=== PATIENT | female | born 1975 | race African-American/Black ===

== ENCOUNTER 2016-11-06 02:59 | Inpatient (IN) | payer OTHER ==
[~2016-11-06] VITALS: Ht 162.6 cm; Wt 87.1 kg
[2016-11-06] VITALS (39 sets, daily range): BP systolic 99–171; BP diastolic 40–131
[2016-11-06] MEDS ORDERED: IPRATROPIUM BROMIDE (0.02%) 0.5MG/2.5ML NEB HHN STA (03:09)
[2016-11-06] MEDS ORDERED: ALBUTEROL (0.083%) 2.5MG/3ML NEB HHN STA (03:09)
[2016-11-06] MEDS ORDERED: ONDANSETRON HCL 4MG/2ML VIAL IV STA (03:09)
[2016-11-06] MEDS ORDERED: SODIUM CHLORIDE 0.9% 1,000 ML IV ONE (03:09)
[2016-11-06] MEDS ORDERED: METHYLPREDNISOLONE SOD SUCC 125 MG/2 ML VIAL IV STA (03:09)
[2016-11-06] MEDS ORDERED: ETOMIDATE 2MG/ML 10ML VIAL IV ONE ×2 (03:15→04:00)
[2016-11-06] MEDS ORDERED: PROPOFOL 10MG/ML 100ML 100 ML IV ONE ×2 (03:15→05:03)
[2016-11-06] MEDS ORDERED: SUCCINYLCHOLINE CHLORIDE 200MG/10ML VIAL IV ONE ×2 (03:15→04:00)
[2016-11-06 04:03] LABS: BASOPHILS % 0.5 % (0.0-2.0); EOSINOPHILS % 6.7 % (0.0-5.0); HEMATOCRIT. 39.4 % (36.0-48.0); HEMOGLOBIN. 12.7 g/dL (12.0-16.0); LYMPHOCYTES % 45.4 % (20.0-50.0); MEAN CORPUSCULAR HEMOGLOBIN 27.2 pg (28.0-32.0); MEAN CORPUSCULAR VOLUME 84.9 fL (81.0-99.0); MEAN PLATELET VOLUME 8.2 fl (7.4-10.4); MONOCYTES % 9.5 % (2.0-8.0); NEUTROPHILS % 37.9 % (40.0-76.0); PLATELET 395 x1000/uL (130-400); RED BLOOD CELL COUNT 4.65 mill/uL (4.2-5.4); RED CELL DISTRIBUTION WIDTH 13.3 % (11.6-14.6)
[2016-11-06 04:32] LABS: CARBON DIOXIDE 27 mEq/L (21-32); CHLORIDE 102 mEq/L (98-107)
[2016-11-06 05:12] LABS: CLARITY URINE TURBID (CLEAR); COLOR URINE YELLOW (YELLOW); GLUCOSE URINE 1+ (NEGATIVE); KETONES URINE NEGATIVE (NEGATIVE); LEUKOCYTE ESTERASE URINE NEGATIVE (NEGATIVE); NITRITE URINE NEGATIVE (NEGATIVE); OCCULT BLOOD URINE 2+ (NEGATIVE); PROTEIN URINE 4+ (NEGATIVE); SPECIFIC GRAVITY URINE 1.024 (1.005-1.030); UROBILINOGEN URINE 0.2 E.U./dL (0.2-1.0)
[2016-11-06 05:19] LABS: BG BASE EXCESS -3.5 mmol/L (-2.0-2.0); BG CARBOXYHEMOGLOBIN 0.3 % (0.5-1.5); BG DEOXYHEMOGLOBIN 0.4 % (0.0-5.0); BG FRACTION INSPIRED OXYGEN 50; BG HCO3 ACT 22.9 mmol/L (22.0-26.0); BG METHEMOGLOBIN 0.4 % (0.0-1.5); BG OXYGEN SATURATION 99.6 % (92.0-98.5); BG OXYHEMOGLOBIN 98.9 % (94.0-97.0); BG PCO2 46.4 mmHg (35.0-45.0); BG PH 7.311 (7.350-7.450); BG PO2 235.1 mmHg (75.0-100.0); BG SAMPLE SITE RIGHT RADIAL; BG TIDAL VOLUME(mL) 500 mL; BG TOTAL HEMOGLOBIN 12.7 g/dL (12.0-18.0); BG VENT MODE VENT - A/C; BG VENT RATE 16 set
[2016-11-06] MEDS ORDERED: OLME1TAB30 PO (05:25)
[2016-11-06] MEDS ORDERED: MONT10TA24 PO (05:25)
[2016-11-06] MEDS ORDERED: DIAZ5TAB4 PO (05:26)
[2016-11-06] MEDS ORDERED: ALBU6.7H INH (05:28)
[2016-11-06] MEDS ORDERED: METHYLPREDNISOLONE SOD SUCC 40 MG/ML VIAL IV SCH (07:00)
[2016-11-06] MEDS: PROPOFOL 10MG/ML 100ML 100 ML IV PRN ×4 (07:33→18:55)
[2016-11-06 08:15] LABS: HEMATOCRIT. 36.8 % (36.0-48.0); HEMOGLOBIN. 11.7 g/dL (12.0-16.0); MEAN CORPUSCULAR HEMOGLOBIN 26.7 pg (28.0-32.0); MEAN PLATELET VOLUME 8.1 fl (7.4-10.4); RED BLOOD CELL COUNT 4.38 mill/uL (4.2-5.4); RED CELL DISTRIBUTION WIDTH 13.5 % (11.6-14.6)
[2016-11-06 08:19] LABS: *AMPHETAMINES SCREEN URINE NEGATIVE (NEGATIVE); *BARBITURATES SCREEN URINE NEGATIVE (NEGATIVE); *BENZODIAZEPINES SCREEN URINE NEGATIVE (NEGATIVE); *COCAINE SCREEN URINE NEGATIVE (NEGATIVE); CANNABINOID URINE SCREEN NEGATIVE (NEGATIVE); METHADONE URINE SCREEN NEGATIVE (NEGATIVE); OPIATES URINE SCREEN NEGATIVE (NEGATIVE); PHENCYCLIDINE URINE SCREEN NEGATIVE (NEGATIVE)
[2016-11-06] MEDS: IPRATROPIUM/ALBUTEROL 0.5-3(2.5)MG/3ML NEB HHN SCH ×3 (08:23→20:45)
[2016-11-06] MEDS ORDERED: IPRATROPIUM/ALBUTEROL 0.5-3(2.5)MG/3ML NEB ONE (08:28)
[2016-11-06 08:30] LABS: CARBON DIOXIDE 25 mEq/L (21-32); CHLORIDE 105 mEq/L (98-107)
[2016-11-06] MEDS ORDERED: MORPHINE SULFATE 2 MG/ML CPJ (NOT FOR IM USE) IV NR (08:38)
[2016-11-06] MEDS ORDERED: ENOXAPARIN 40MG/0.4ML SYR SUBCUT ONE (08:45)
[2016-11-06] MEDS ORDERED: CLONIDINE 0.1MG TABLET PO PRN (08:45)
[2016-11-06] MEDS ORDERED: ONDANSETRON HCL 4MG/2ML VIAL IV PRN (08:45)
[2016-11-06] MEDS ORDERED: DEXTROSE 50% WATER 50ML SYRINGE IV PRN (08:45)
[2016-11-06] MEDS: DEXT 5%/0.45% NACL KCL 20MEQ/L 1,000 ML IV SCH ×2 (08:56→18:42)
[2016-11-06] MEDS ORDERED: DIAZEPAM 2 MG TABLET NG PRN (09:00)
[2016-11-06] MEDS ORDERED: LIDOCAINE HCL/PF 1% 2ML VIAL ONE (09:01)
[2016-11-06] MEDS: CEFTRIAXONE 1 G PREMIX 50 ML IV SCH (09:28)
[2016-11-06] MEDS: ENOXAPARIN 40MG/0.4ML SYR SUBCUT SCH (09:30)
[2016-11-06 09:45] LABS: BG BASE EXCESS -2.4 mmol/L (-2.0-2.0); BG CARBOXYHEMOGLOBIN 0.5 % (0.5-1.5); BG DEOXYHEMOGLOBIN 0.4 % (0.0-5.0); BG FRACTION INSPIRED OXYGEN 50; BG HCO3 ACT 23.8 mmol/L (22.0-26.0); BG METHEMOGLOBIN 0.2 % (0.0-1.5); BG OXYGEN SATURATION 99.6 % (92.0-98.5); BG OXYHEMOGLOBIN 98.9 % (94.0-97.0); BG PCO2 46.8 mmHg (35.0-45.0); BG PH 7.325 (7.350-7.450); BG PO2 240.4 mmHg (75.0-100.0); BG PRESSURE SUPPORT 10; BG SAMPLE SITE RIGHT RADIAL; BG TIDAL VOLUME(mL) 500 mL; BG TOTAL HEMOGLOBIN 13.1 g/dL (12.0-18.0); BG VENT MODE VENT - SIMV; BG VENT RATE 6 set
[2016-11-06 09:56] LABS: PLATELET ESTIMATE NORMAL
[2016-11-06 09:57] LABS: PLATELET 364 x1000/uL (130-400)
[2016-11-06] MEDS: AZITHROMYCIN 500 MG in DEXT 5% WATER 250 ML IV SCH (10:35)
[2016-11-06] MEDS: FENTANYL CITRATE/PF 500 MCG in SODIUM CHLORIDE 0.9% 40 ML IV PRN (10:35)
[2016-11-06] MEDS: BLOOD SUGAR DIAGNOSTIC STRIP TEST SCH ×3 (12:08→23:08)
[2016-11-06] MEDS: INSULIN LISPRO 100 UNITS/ML SUBCUT SCH ×3 (12:10→23:09)
[2016-11-06] MEDS: BUDESONIDE 0.5MG/2ML NEB HHN SCH ×2 (13:27→20:46)
[2016-11-06] MEDS: METHYLPREDNISOLONE SOD SUCC 125 MG/2 ML VIAL IV SCH ×2 (14:41→21:09)
[2016-11-06] MEDS: MORPHINE SULFATE 2 MG/ML CPJ (NOT FOR IM USE) IV PRN ×2 (17:51→20:17)
[2016-11-06] MEDS: MONTELUKAST SODIUM 10MG TABLET PO SCH (18:02)
[2016-11-06] MEDS: DIAZEPAM 2 MG TABLET NG SCH (21:11)
[2016-11-07] VITALS (42 sets, daily range): BP systolic 106–163; BP diastolic 49–100
[2016-11-07] MEDS: FENTANYL CITRATE/PF 500 MCG in SODIUM CHLORIDE 0.9% 40 ML IV PRN (01:17)
[2016-11-07] MEDS: PROPOFOL 10MG/ML 100ML 100 ML IV PRN ×2 (02:24→06:06)
[2016-11-07] MEDS: DEXT 5%/0.45% NACL KCL 20MEQ/L 1,000 ML IV SCH ×2 (04:01→18:11)
[2016-11-07] MEDS ORDERED: LIDOCAINE HCL/PF 1% 2ML VIAL ONE ×2 (05:00→10:15)
[2016-11-07 05:23] LABS: HEMATOCRIT. 32.5 % (36.0-48.0); HEMOGLOBIN. 10.4 g/dL (12.0-16.0); MEAN CORPUSCULAR HEMOGLOBIN 26.7 pg (28.0-32.0); MEAN CORPUSCULAR VOLUME 83.2 fL (81.0-99.0); MEAN PLATELET VOLUME 8.1 fl (7.4-10.4); PLATELET 382 x1000/uL (130-400); RED BLOOD CELL COUNT 3.91 mill/uL (4.2-5.4); RED CELL DISTRIBUTION WIDTH 13.7 % (11.6-14.6)
[2016-11-07] MEDS: METHYLPREDNISOLONE SOD SUCC 125 MG/2 ML VIAL IV SCH (05:39)
[2016-11-07] MEDS: BLOOD SUGAR DIAGNOSTIC STRIP TEST SCH ×3 (05:43→18:10)
[2016-11-07] MEDS: INSULIN LISPRO 100 UNITS/ML SUBCUT SCH ×3 (05:47→17:53)
[2016-11-07 05:53] LABS: CARBON DIOXIDE 21 mEq/L (21-32); CHLORIDE 106 mEq/L (98-107); TROPONIN I < 0.02 ng/mL (0.00-0.04)
[2016-11-07 07:58] LABS: BG BASE EXCESS -3.2 mmol/L (-2.0-2.0); BG CARBOXYHEMOGLOBIN 0.5 % (0.5-1.5); BG DEOXYHEMOGLOBIN 0.7 % (0.0-5.0); BG FRACTION INSPIRED OXYGEN 35; BG HCO3 ACT 19.1 mmol/L (22.0-26.0); BG METHEMOGLOBIN 0.3 % (0.0-1.5); BG OXYGEN SATURATION 99.3 % (92.0-98.5); BG OXYHEMOGLOBIN 98.5 % (94.0-97.0); BG PH 7.468 (7.350-7.450); BG PO2 154.7 mmHg (75.0-100.0); BG SAMPLE SITE RIGHT RADIAL; BG TIDAL VOLUME(mL) 550 mL; BG TOTAL HEMOGLOBIN 12.7 g/dL (12.0-18.0); BG VENT MODE VENT - A/C; BG VENT RATE 16 set
[2016-11-07] MEDS: BUDESONIDE 0.5MG/2ML NEB HHN SCH ×2 (08:00→21:14)
[2016-11-07] MEDS: IPRATROPIUM/ALBUTEROL 0.5-3(2.5)MG/3ML NEB HHN SCH ×4 (08:00→21:14)
[2016-11-07] MEDS ORDERED: AMLODIPINE 2.5MG TABLET PO NR (09:45)
[2016-11-07 10:00] LABS: BG BASE EXCESS -3.5 mmol/L (-2.0-2.0); BG CARBOXYHEMOGLOBIN 0.3 % (0.5-1.5); BG DEOXYHEMOGLOBIN 1.4 % (0.0-5.0); BG FRACTION INSPIRED OXYGEN 35; BG HCO3 ACT 20.8 mmol/L (22.0-26.0); BG METHEMOGLOBIN 0.2 % (0.0-1.5); BG OXYGEN SATURATION 98.6 % (92.0-98.5); BG OXYHEMOGLOBIN 98.1 % (94.0-97.0); BG PCO2 35.3 mmHg (35.0-45.0); BG PH 7.388 (7.350-7.450); BG PO2 131.9 mmHg (75.0-100.0); BG PRESSURE SUPPORT 6; BG SAMPLE SITE RIGHT RADIAL; BG TOTAL HEMOGLOBIN 12.7 g/dL (12.0-18.0); BG VENT MODE VENT - CPAP
[2016-11-07] MEDS: CEFTRIAXONE 1 G PREMIX 50 ML IV SCH (10:03)
[2016-11-07] MEDS: ENOXAPARIN 40MG/0.4ML SYR SUBCUT SCH (10:04)
[2016-11-07 10:25] LABS: PLATELET ESTIMATE NORMAL
[2016-11-07] MEDS: AZITHROMYCIN 500 MG in DEXT 5% WATER 250 ML IV SCH (11:55)
[2016-11-07] MEDS: MONTELUKAST SODIUM 10MG TABLET PO SCH (17:08)
[2016-11-07] MEDS: METHYLPREDNISOLONE SOD SUCC 40 MG/ML VIAL IV SCH (18:11)
[2016-11-07] MEDS: DIAZEPAM 2 MG TABLET NG SCH (20:58)
[2016-11-07] MEDS: AMLODIPINE 2.5MG TABLET PO SCH (20:58)
[2016-11-08] VITALS (17 sets, daily range): BP systolic 116–145; BP diastolic 25–94
[2016-11-08] MEDS: INSULIN LISPRO 100 UNITS/ML SUBCUT SCH ×4 (00:16→16:43)
[2016-11-08] MEDS: BLOOD SUGAR DIAGNOSTIC STRIP TEST SCH ×4 (00:16→16:29)
[2016-11-08] MEDS: DEXT 5%/0.45% NACL KCL 20MEQ/L 1,000 ML IV SCH ×3 (00:16→21:18)
[2016-11-08] MEDS: IPRATROPIUM/ALBUTEROL 0.5-3(2.5)MG/3ML NEB HHN SCH ×4 (01:46→21:00)
[2016-11-08] MEDS: METHYLPREDNISOLONE SOD SUCC 40 MG/ML VIAL IV SCH (05:35)
[2016-11-08 05:58] LABS: HEMATOCRIT. 33.7 % (36.0-48.0); HEMOGLOBIN. 10.9 g/dL (12.0-16.0); MEAN CORPUSCULAR HEMOGLOBIN 26.9 pg (28.0-32.0); MEAN CORPUSCULAR VOLUME 83.4 fL (81.0-99.0); MEAN PLATELET VOLUME 8.3 fl (7.4-10.4); PLATELET 421 x1000/uL (130-400); RED BLOOD CELL COUNT 4.05 mill/uL (4.2-5.4); RED CELL DISTRIBUTION WIDTH 13.3 % (11.6-14.6)
[2016-11-08 06:27] LABS: CARBON DIOXIDE 25 mEq/L (21-32); CHLORIDE 104 mEq/L (98-107); PHOSPHORUS 2.5 mg/dL (2.5-4.9)
[2016-11-08 07:31] LABS: BG BASE EXCESS -1.3 mmol/L (-2.0-2.0); BG CARBOXYHEMOGLOBIN 0.7 % (0.5-1.5); BG DEOXYHEMOGLOBIN 3.1 % (0.0-5.0); BG HCO3 ACT 23.2 mmol/L (22.0-26.0); BG METHEMOGLOBIN 0.3 % (0.0-1.5); BG OXYGEN SATURATION 96.9 % (92.0-98.5); BG OXYHEMOGLOBIN 95.9 % (94.0-97.0); BG PCO2 37.8 mmHg (35.0-45.0); BG PH 7.405 (7.350-7.450); BG PO2 90.2 mmHg (75.0-100.0); BG SAMPLE SITE RIGHT RADIAL; BG TOTAL HEMOGLOBIN 11.7 g/dL (12.0-18.0); BG VENT MODE NASAL CANNULA
[2016-11-08] MEDS: ENOXAPARIN 40MG/0.4ML SYR SUBCUT SCH (09:20)
[2016-11-08] MEDS: CEFTRIAXONE 1 G PREMIX 50 ML IV SCH (09:20)
[2016-11-08] MEDS: AMLODIPINE 2.5MG TABLET PO SCH ×2 (09:21→21:20)
[2016-11-08] MEDS: BUDESONIDE 0.5MG/2ML NEB HHN SCH ×2 (09:49→21:00)
[2016-11-08] MEDS: AZITHROMYCIN 500 MG in DEXT 5% WATER 250 ML IV SCH (10:58)
[2016-11-08] MEDS ORDERED: THROAT LOZENGES-BENZOCAINE/MENTH/CETYLPYRD CL LOZENGES MM PRN (11:00)
[2016-11-08 12:36] LABS: PLATELET ESTIMATE NORMAL
[2016-11-08] MEDS: MONTELUKAST SODIUM 10MG TABLET PO SCH (16:42)
[2016-11-08] MEDS: DIAZEPAM 2 MG TABLET NG SCH (21:00)
[2016-11-09] VITALS (7 sets, daily range): BP systolic 108–132; BP diastolic 72–89
[2016-11-09] MEDS: IPRATROPIUM/ALBUTEROL 0.5-3(2.5)MG/3ML NEB HHN SCH ×3 (01:47→19:51)
[2016-11-09] MEDS: DEXT 5%/0.45% NACL KCL 20MEQ/L 1,000 ML IV SCH ×2 (05:52→12:14)
[2016-11-09] MEDS: BLOOD SUGAR DIAGNOSTIC STRIP TEST SCH ×4 (05:53→17:05)
[2016-11-09] MEDS: INSULIN LISPRO 100 UNITS/ML SUBCUT SCH ×4 (06:00→17:13)
[2016-11-09 06:36] LABS: BASOPHILS % 0.5 % (0.0-2.0); EOSINOPHILS % 0.5 % (0.0-5.0); HEMOGLOBIN. 11.4 g/dL (12.0-16.0); LYMPHOCYTES % 22.7 % (20.0-50.0); MEAN CORPUSCULAR HEMOGLOBIN 26.9 pg (28.0-32.0); MEAN CORPUSCULAR VOLUME 84.9 fL (81.0-99.0); MEAN PLATELET VOLUME 7.8 fl (7.4-10.4); MONOCYTES % 9.2 % (2.0-8.0); NEUTROPHILS % 67.1 % (40.0-76.0); PLATELET 418 x1000/uL (130-400); RED BLOOD CELL COUNT 4.25 mill/uL (4.2-5.4); RED CELL DISTRIBUTION WIDTH 13.1 % (11.6-14.6)
[2016-11-09 06:44] LABS: CARBON DIOXIDE 30 mEq/L (21-32); CHLORIDE 103 mEq/L (98-107)
[2016-11-09] MEDS: CEFTRIAXONE 1 G PREMIX 50 ML IV SCH (08:50)
[2016-11-09] MEDS: AMLODIPINE 2.5MG TABLET PO SCH ×2 (08:50→21:00)
[2016-11-09] MEDS: ENOXAPARIN 30MG/0.3ML SYR SUBCUT SCH ×2 (08:50→21:43)
[2016-11-09] MEDS ORDERED: METHYLPREDNISOLONE SOD SUCC 40 MG/ML VIAL IV SCH (09:00)
[2016-11-09] MEDS: BUDESONIDE 0.5MG/2ML NEB HHN SCH (09:16)
[2016-11-09] MEDS: AZITHROMYCIN 500 MG in DEXT 5% WATER 250 ML IV SCH (12:14)
[2016-11-09] MEDS: MONTELUKAST SODIUM 10MG TABLET PO SCH (17:12)
[2016-11-09] MEDS: DIAZEPAM 2 MG TABLET NG SCH (21:00)
[2016-11-10] MEDS: BLOOD SUGAR DIAGNOSTIC STRIP TEST SCH ×3 (00:26→12:00)
[2016-11-10] MEDS: INSULIN LISPRO 100 UNITS/ML SUBCUT SCH ×4 (00:31→13:29)
[2016-11-10] MEDS: IPRATROPIUM/ALBUTEROL 0.5-3(2.5)MG/3ML NEB HHN SCH ×3 (01:46→13:15)
[2016-11-10] MEDS: DEXT 5%/0.45% NACL KCL 20MEQ/L 1,000 ML IV SCH ×2 (03:46→12:30)
[2016-11-10 04:35] VITALS: BP 119/69
[2016-11-10 06:57] LABS: CARBON DIOXIDE 28 mEq/L (21-32); CHLORIDE 102 mEq/L (98-107)
[2016-11-10 07:18] LABS: BASOPHILS % 0.1 % (0.0-2.0); EOSINOPHILS % 0.4 % (0.0-5.0); HEMATOCRIT. 34.4 % (36.0-48.0); LYMPHOCYTES % 21.1 % (20.0-50.0); MEAN CORPUSCULAR HEMOGLOBIN 26.6 pg (28.0-32.0); MEAN CORPUSCULAR VOLUME 83.1 fL (81.0-99.0); MEAN PLATELET VOLUME 7.8 fl (7.4-10.4); MONOCYTES % 8.6 % (2.0-8.0); NEUTROPHILS % 69.8 % (40.0-76.0); PLATELET 405 x1000/uL (130-400); RED BLOOD CELL COUNT 4.14 mill/uL (4.2-5.4); RED CELL DISTRIBUTION WIDTH 13.1 % (11.6-14.6)
[2016-11-10 08:00] VITALS: BP 127/84
[2016-11-10] MEDS: AMLODIPINE 2.5MG TABLET PO SCH (09:06)
[2016-11-10] MEDS: ENOXAPARIN 30MG/0.3ML SYR SUBCUT SCH (09:07)
[2016-11-10] MEDS: CEFTRIAXONE 1 G PREMIX 50 ML IV SCH (09:08)
[2016-11-10] MEDS ORDERED: PREDNISONE 5MG TABLET PO SCH (10:00)
[2016-11-10] MEDS ORDERED: METFORMIN HCL 500MG TABLET PO SCH ×2 (10:00→17:50)
[2016-11-10 12:00] VITALS: BP 121/78
[2016-11-10] MEDS: AZITHROMYCIN 500 MG in DEXT 5% WATER 250 ML IV SCH (13:29)
[2016-11-10 14:52] VITALS: BP 127/88
[2016-11-11] MEDS ORDERED: PREDNISONE 5MG TABLET PO SCH (07:50)
[2016-11-11] MEDS ORDERED: AZITHROMYCIN 500 MG TABLET PO SCH (09:00)
== END 2016-11-10 15:00 | disposition home or self-care (01) | DRG 208 ==
LOC: ER 02:59 → MICUSO 04:19 → EDBEDREQTM 04:36 → EDBEDREQ 04:36 → ENRESERV 04:51 → 6WST 11-08 06:15
PROVIDERS: ADMIT Internal Medicine Geriatric Medicine; ATTEND Internal Medicine Geriatric Medicine
PROC: 0BH17EZ Insertion of Endotracheal Airway into Trachea, Via Natural or Artificial Opening (ICD-10-PCS; principal; 2016-11-06)
PROC: 5A1945Z Respiratory Ventilation, 24-96 Consecutive Hours (ICD-10-PCS; 2016-11-06)
DX: J96.02 Acute respiratory failure with hypercapnia (principal); E87.2 Acidosis; J45.901 Unspecified asthma with (acute) exacerbation; Z78.1 Physical restraint status; E11.65 Type 2 diabetes mellitus with hyperglycemia; N39.0 Urinary tract infection, site not specified; J98.11 Atelectasis; I10 Essential (primary) hypertension; G89.29 Other chronic pain; J20.9 Acute bronchitis, unspecified; M54.9 Dorsalgia, unspecified; D64.9 Anemia, unspecified; R32 Unspecified urinary incontinence; E66.9 Obesity, unspecified; J02.9 Acute pharyngitis, unspecified; T38.0X5A Adverse effect of glucocorticoids and synthetic analogues, initial encounter; F41.1 Generalized anxiety disorder; Z82.5 Family history of asthma and other chronic lower respiratory diseases; Z68.33 Body mass index [BMI] 33.0-33.9, adult
CPT/HCPCS: 31500; 36415; 36600; 51702; 71010; 80048; 80053; 80305; 81001; 82375; 82805; 82962; 83036; 83605; 83735; 84100; 84156; 84443; 84478; 84484; 85025; 87040; 87070; 92610; 93005; 93970; 94002; 94003; 94640; 96361; 96374; 96375; 97110; 97116; 97162; 97530; 99291; C1893; J0330; J0456; J0696; J1650; J1815; J2270; J2405; J2704; J2920; J2930; J3010; J3490; J7030; J7050; J7060; J7512; J7611; J7620; J7626